=== PATIENT | male | born 1980 | race American Indian/Alaskan Native ===

== ENCOUNTER 2016-08-28 10:33 | Emergency (ER) | payer SELFPAY ==
[2016-08-28 10:54] VITALS: BP 153/93
--- NOTE | 2016-08-28 11:22 | XRay Report ---
RIGHT ANKLE, 3 views: History: Pain and swelling. Findings: Mild soft tissue swelling is identified. No acute osseous abnormality or joint pathology is identified. The fifth metatarsal base is intact. Impression: Soft tissue swelling. No acute osseous injury.
[2016-08-28] MEDS ORDERED: MOTRIN ONE (11:58)
--- NOTE | 2016-08-28 11:59 | Emergency Department Report ---
ED Extremity Problem HPI - General Chief complaint: Extremity Injury, Lower Stated complaint: ANKLE PAIN Source: patient Mode of arrival: Wheelchair Limitations: No Limitations - History of Present Illness Initial comments: 35-year-old male reports that he twisted his ankle yesterday. He complains that he is not able to put any pressure to his foot. Difficulty bearing weight. Patient has a past medical history of asthma. - Related Data Previous Rx's Medication Instructions Recorded Last Taken Type Ibuprofen [Motrin 800 MG tab] 800 mg PO Q8HR PRN #45 tablet 08/28/16 Unknown Rx Allergies Allergy/AdvReac Type Severity Reaction Status Date / Time No Known Allergies Allergy Unverified 08/28/16 10:53 ED Review of Systems ROS: Stated complaint: ANKLE PAIN Other details as noted in HPI ED Past Medical Hx - Past Medical History Hx Asthma: Yes - Social History Smoking Status: Never Smoker Substance Use Type: None - Medications Home Medications: Home Medications Medication Instructions Recorded Confirmed Last Taken Type Ibuprofen [Motrin 800 MG tab] 800 mg PO Q8HR PRN #45 tablet 08/28/16 Unknown Rx ED Physical Exam - General Limitations: No Limitations General appearance: alert, in no apparent distress - Head Head exam: Present: atraumatic, normocephalic - Extremities Exam Extremities exam: Present: full ROM (with pain), tenderness, pedal edema, joint swelling. Absent: calf tenderness - Expanded Lower Extremity Exam Right Ankle exam: Present: full ROM (with pain elicited), tenderness, swelling. Absent: anterior draw sign Foot/Toe exam: Present: full ROM, tenderness, swelling ED Course Vital Signs 08/28/16 10:40 Temperature 98.3 F Pulse Rate 80 Blood Pressure 153/93 ED Medical Decision Making - Radiology Data Radiology results: image reviewed RIGHT ANKLE, 3 views: History: Pain and swelling. Findings: Mild soft tissue swelling is identified. No acute osseous abnormality or joint pathology is identified. The fifth metatarsal base is intact. Impression: Soft tissue swelling. No acute osseous injury. Transcribed By: TTR Dictated By: MALLIKA MCKENZIE JR, MD Electronically Authenticated By: MALLIKA MCKENZIE JR, MD Signed Date/Time: 08/28/16 1117 - Medical Decision Making Patient evaluated by this provider. X-rays ordered of the right ankle 2 views. We will give patient ibuprofen 800 mg by mouth now discharged patient with a referral to orthopedics as well as ibuprofen 800 mg by mouth 3 times a day when necessary for pain. Also place him in a ankle brace. Critical care attestation.: If time is entered above; I have spent that time in minutes in the direct care of this critically ill patient, excluding procedure time. ED Disposition Clinical Impression: Sprain and strain of deltoid (ligament) of ankle Qualifiers: Encounter type: initial encounter Laterality: right Qualified Code(s): S93.421A - Sprain of deltoid ligament of right ankle, initial encounter Disposition: DISCHARGED TO HOME OR SELFCARE Is pt being admited?: No Does the pt Need Aspirin: No Condition: Stable Additional Instructions: Ibuprofen for pain management. Very importantly to follow-up with orthopedics. Prescriptions: Ibuprofen [Motrin 800 MG tab] 800 mg PO Q8HR PRN #45 tablet PRN Reason: Pain Referrals: PRIMARY MD YANNA [Primary Care Provider] - 3-5 Days AMANDA RORDIGEZ MD [Staff Physician] - 3-5 Days DOMINIQUE ZAMBRANO MD [Staff Physician] - 3-5 Days Forms: Work/School Release Form(ED)
[2016-08-28] MEDS ORDERED: MOTRIN PO ONE (12:05)
== END 2016-08-28 12:20 | disposition home or self-care (01) ==
LOC: ED 10:33
DX: S93.421A Sprain of deltoid ligament of right ankle, initial encounter (principal); J45.909 Unspecified asthma, uncomplicated; X58.XXXA Exposure to other specified factors, initial encounter; Y93.9 Activity, unspecified; Y99.9 Unspecified external cause status; Y92.89 Other specified places as the place of occurrence of the external cause

== ENCOUNTER 2019-08-09 09:52 | Emergency (ER) | payer SELFPAY ==
[2019-08-09] MEDS ORDERED: ALBUTEROL 2.5 MG/3 ML NEBU IH ONE (12:21)
--- NOTE | 2019-08-09 12:24 | Emergency Department Report ---
- General Chief Complaint: Upper Respiratory Infection Stated Complaint: CHEST TIGHTNESS/COUGH Time Seen by Provider: 08/09/19 11:36 Source: patient Mode of arrival: Ambulatory Limitations: No Limitations - History of Present Illness Initial Comments: 38 yo male with hx of Asthma c/o cough started yesterday. States he cough so much that chest hurts. Productive cough of yellow phlegm. Denies fever vomiting or diarrhea. MD Complaint: cough -: Sudden Severity: mild Quality: aching Consistency: intermittent Improves With: nothing Worsens With: nothing Associated Symptoms: cough. denies: shortness of breath - Related Data Previous Rx's Medication Instructions Recorded Last Taken Type Ibuprofen [Motrin 800 MG tab] 800 mg PO Q8HR PRN #45 tablet 08/28/16 Unknown Rx Amoxicillin [Amoxicillin TAB] 875 mg PO BID #20 tablet 08/09/19 Unknown Rx Ibuprofen [Motrin 800 MG tab] 800 mg PO Q8HR PRN 5 Days #15 08/09/19 Unknown Rx tablet Allergies Allergy/AdvReac Type Severity Reaction Status Date / Time No Known Allergies Allergy Unverified 08/28/16 10:53 ED Review of Systems ROS: Stated complaint: CHEST TIGHTNESS/COUGH Other details as noted in HPI Comment: All other systems reviewed and negative Constitutional: fever ENT: throat pain, congestion Respiratory: cough Gastrointestinal: denies: abdominal pain, nausea, vomiting Genitourinary: denies: dysuria, frequency, discharge ED Past Medical Hx - Past Medical History Previous Medical History?: Yes Hx Asthma: Yes - Surgical History Past Surgical History?: No - Social History Smoking Status: Never Smoker Substance Use Type: None - Medications Home Medications: Home Medications Medication Instructions Recorded Confirmed Last Taken Type Ibuprofen [Motrin 800 MG tab] 800 mg PO Q8HR PRN #45 tablet 08/28/16 Unknown Rx Amoxicillin [Amoxicillin TAB] 875 mg PO BID #20 tablet 08/09/19 Unknown Rx Ibuprofen [Motrin 800 MG tab] 800 mg PO Q8HR PRN 5 Days #15 08/09/19 Unknown Rx tablet ED Physical Exam - General Limitations: No Limitations General appearance: alert, in no apparent distress - Head Head exam: Present: atraumatic, normal inspection - Eye Eye exam: Present: normal appearance. Absent: scleral icterus, conjunctival injection - ENT ENT exam: Present: normal exam, mucous membranes moist, TM's normal bilaterally - Neck Neck exam: Present: full ROM. Absent: lymphadenopathy - Respiratory Respiratory exam: Present: normal lung sounds bilaterally, chest wall tenderness (right chest wall tenderness with palapation ). Absent: respiratory distress, wheezes, rales - Cardiovascular Cardiovascular Exam: Present: regular rate, normal rhythm, normal heart sounds - GI/Abdominal GI/Abdominal exam: Present: soft. Absent: distended, tenderness, guarding - Rectal Rectal exam: Present: deferred - Extremities Exam Extremities exam: Present: normal inspection. Absent: pedal edema, joint swelling - Back Exam Back exam: Absent: normal inspection, CVA tenderness (R), CVA tenderness (L) - Neurological Exam Neurological exam: Present: alert, oriented X3 - Psychiatric Psychiatric exam: Present: normal affect - Skin Skin exam: Present: warm, dry, intact, normal color. Absent: rash ED Course Vital Signs 08/09/19 08/09/19 09:59 13:44 Temperature 98.6 F 98.1 F Pulse Rate 56 L 98 H Respiratory 20 16 Rate Blood Pressure 128/89 Blood Pressure 122/86 [Left] O2 Sat by Pulse 98 97 Oximetry ED Medical Decision Making - Radiology Data Radiology results: report reviewed CXR FINDINGS: SUPPORT DEVICES: None. HEART / MEDIASTINUM: No significant abnormality. LUNGS / PLEURA: No significant pulmonary or pleural abnormality. No pneumothorax. ADDITIONAL FINDINGS: No significant additional findings. IMPRESSION: 1. No acute findings. No interval change. - Medical Decision Making Pt in no distress, tolerated albuterol neb treatment. Chest xray with no acute findings. URI with chest wall pain from coughing. Pt safe for discharge home with outpatient follow up. He was not wheezing on examination states he has inhaler at home. Outpatient follow up with PCP Critical Care Time: No Critical care attestation.: If time is entered above; I have spent that time in minutes in the direct care of this critically ill patient, excluding procedure time. ED Disposition Clinical Impression: Costochondritis URI (upper respiratory infection) Qualifiers: URI type: unspecified URI Qualified Code(s): J06.9 - Acute upper respiratory infection, unspecified Disposition: - TO HOME OR SELFCARE Is pt being admited?: No Does the pt Need Aspirin: No Condition: Stable Instructions: Costochondritis (ED), Upper Respiratory Infection (ED) Additional Instructions: Rest increased hydration, Ok to take over the counter Robitussion for cough as directed by package insert. Your chest X-ray today did not have any abnormal findings Take medication as prescribed. Follow up with your doctor in 2-3 days. IF your symptoms worsens return to the ER, FOR ongoing fever, difficulty breathing, chest pain, Prescriptions: Amoxicillin [Amoxicillin TAB] 875 mg PO BID #20 tablet Ibuprofen [Motrin 800 MG tab] 800 mg PO Q8HR PRN 5 Days #15 tablet PRN Reason: Pain, Moderate (4-6) Forms: Work/School Release Form(ED) Time of Disposition: 13:33
--- NOTE | 2019-08-09 12:42 | XRay Report ---
CHEST 2 VIEWS INDICATION / CLINICAL INFORMATION: MAIN: cough FOR 1 DAY. COMPARISON: 12/28/2007 FINDINGS: SUPPORT DEVICES: None. HEART / MEDIASTINUM: No significant abnormality. LUNGS / PLEURA: No significant pulmonary or pleural abnormality. No pneumothorax. ADDITIONAL FINDINGS: No significant additional findings. IMPRESSION: 1. No acute findings. No interval change. Signer Name: Bettina Schmidt MD Signed: 08/09/2019 12:38 PM Workstation Name: [id number]
[2019-08-09 13:46] VITALS: BP 122/86
== END 2019-08-09 13:45 | disposition home or self-care (01) ==
LOC: ED 09:52
DX: J06.9 Acute upper respiratory infection, unspecified (principal); M94.0 Chondrocostal junction syndrome [Tietze]; J45.909 Unspecified asthma, uncomplicated; Z79.899 Other long term (current) drug therapy
CPT/HCPCS: 71046; 94640